=== PATIENT | male | born 1995 | race Caucasian/White ===

== ENCOUNTER 2021-11-05 13:29 | Emergency (ER) | payer BC, SELFPAY ==
[2021-11-05 13:34] VITALS: BP 119/70; PULSE 87; RESP 14; TEMP 36.8; O2SAT 97
--- NOTE | 2021-11-05 13:45 | DI.RAD_ITS ---
Exam(s) XR HAND LT COMPLETE EXAM: XR HAND LT COMPLETE CLINICAL HISTORY: trauma, pain TECHNIQUE: COMPARISON: No exams were available for comparison FINDINGS: Three views were obtained. There is no evidence of acute fracture or dislocation. IMPRESSION: RADIATION DOSE DELIVERED: Total DLP
--- NOTE | 2021-11-05 13:56 | PDOC.ERCMPRO ---
- If Service Date Differs Date of service: 11/05/21 Time of Service: 13:56 Care Management Progress Note YSBIRT Screen: negative. Pt reports no substance use or mental health symptoms. Pt notes infrequent cannabis use but does not endorse any symptoms of dependence.
--- NOTE | 2021-11-05 13:57 | W.ED.GENAD ---
Discharge Plan Disposition Patient Disposition: HOME Condition: Stable Discharge Details Clinical Impression: Hand injury Primary Care Provider: Unknown,Unknown ED Provider: Chrissie Adams Home Meds and New Rx's Prescriptions: No Action No Known Home Meds Discharge Instructions Instructions: Hand Sprain (ED) Additional Instructions: Please return immediately to the emergency department if you develop any new or worsening symptoms, if your condition does not improve as expected, or if you become otherwise concerned. It is extremely important that you call soon as possible to make an appointment to be seen in follow-up for this visit by your primary care doctor. Discharge Data Discharge Date/Time-TO BE ENTERED AT DEPARTURE: 11/05/21 14:38 Medical Decision Making Luke Acharya is a 26 y/o man without reported h/o of major medical problems presenting to the emergency department with hand pain. Pt reports that he works at [employer] and does a significnat amount of tumbling on mats. Pt reports that four days ago he was tumbling when he landed with his left hand half off of the mat, and had pain to the lateral aspect of his hand. Pt reports that pain has persisted. Pt reports that pain has not limited any of his activities, but he wanted to have the hand evaluated given duration of symptoms. He states that he had no other injuries when he injured his hand, did not hit his head, did not lose consciousness, no skin wound. Denies any other pain, numbness, weakness. Pt states that he feels otherwise well and in his usual state of health, denies fever, SOB, cough, vomiting, rash. On exam Pt is very well and non-toxic appearing. There is TTP of the lateral aspect of the 5th MC and of the lateral aspect of the 5th MCJ. FROM of all 5 digits. Fingers NVI. Concern for contusion vs fx. Exam/hx at this time is not c/w infectious pathology. Plan for xrays. Xrays negative. Plan for brace. I had a lengthy discussion with the Patient regarding return to emergency department precautions, home care, and importance of outpatient follow-up. Pt verbalized understanding of the plan and was amenable. All questions were answered. Medical Records Medical records reviewed: Yes I reviewed the patient's medical records. Imaging Data Radiologic Study: Attestation: I personally reviewed and interpreted this imaging study as follows: Radiologist's impression: EXAM:? XR HAND LT COMPLETE CLINICAL HISTORY:? trauma, pain TECHNIQUE:? COMPARISON:? No exams were available for comparison FINDINGS: Three views were obtained.? There is no evidence of acute fracture or dislocation. HPI General Mode of arrival: ambulatory. Date/Time Provider Initiated Documentation: 11/05/21 13:48. Limitations to Documentation: no limitations. Information obtained by: patient, RN notes reviewed and old records reviewed. HPI Narrative: Luke Acharya is a 26 y/o man without reported h/o of major medical problems presenting to the emergency department with hand pain. Pt reports that he works at [employer] and does a significnat amount of tumbling on mats. Pt reports that four days ago he was tumbling when he landed with his left hand half off of the mat, and had pain to the lateral aspect of his hand. Pt reports that pain has persisted. Pt reports that pain has not limited any of his activities, but he wanted to have the hand evaluated given duration of symptoms. He states that he had no other injuries when he injured his hand, did not hit his head, did not lose consciousness, no skin wound. Denies any other pain, numbness, weakness. Pt states that he feels otherwise well and in his usual state of health, denies fever, SOB, cough, vomiting, rash. Related Data Home Medications Medication Instructions Recorded Confirmed Unknown [No Known Home Meds] 11/05/21 11/05/21 Allergies Allergy/AdvReac Type Severity Reaction Status Date / Time No Known Allergies Allergy Unverified 11/05/21 13:36 General Stated Complaint: Orthopedic EWA: 4 PFSH All Active Problems (Updated 11/05/21 @ 14:30 by Chrissie Adams MD) Hand injury (Acute) Social History Smoking/Tobacco Use Status: Never Smoking risk assessment performed?: Yes Alcohol Intake: current Alcohol Intake frequency: holidays/special occasions only Drug use: Occasionally Substance use type: marijuana Do you feel safe at home: Yes Do you feel safe in your relationship?: Yes Exam Narrative Exam Narrative: Constitutional: well and [id number], pleasant, conversing normally HENT: head atraumatic/normocephalic/normal inspection, mucous membranes moist Eyes: conjunctiva normal, sclera normal, pupils 3mm b/l Neck: no stridor, normal ROM, trachea midline Resp: normal work of breathing, speaking in full sentences Cardio: normal rate, normal rhythm Skin: warm, dry, normal color, no rash Neuro: alert, not altered, grossly non-focal, normal tone Ext: no edema, left hand TTP over the lateral aspect of the 5th MC and of the lateral aspect of the 5th MCJ. FROM of all 5 digits, FDS and FDP of all digits intact. Sensation intact over left distal digits. Brisk cap refill all left digits. Left wrist with full painless ROM and no TTP. Psych: normal mood, normal affect, normal behavior Course Vital Signs Vital signs: Vital Signs Temperature 36.8 C 11/05/21 13:34 Pulse 87 11/05/21 13:34 Respiratory Rate 14 11/05/21 13:34 Blood Pressure 119/70 11/05/21 13:34 Pulse Oximetry 97 11/05/21 13:34 Temperature 36.8 C 11/05/21 13:34 Temperature Source Temporal Artery Scan 11/05/21 13:34 Pulse 87 11/05/21 13:34 Respiratory Rate 14 11/05/21 13:34 Respiratory Effort Non-Labored 11/05/21 13:37 Blood Pressure 119/70 11/05/21 13:34 Blood Pressure Position Sitting 11/05/21 13:34 Pulse Oximetry 97 11/05/21 13:34 Oxygen Delivery Method Room Air 11/05/21 13:34 Oxygen Flow Rate 0 11/05/21 13:34 Pain Level 2 11/05/21 13:34 PAWSS Have you Been Recently Intoxicated or Drunk Within the Last 30 days?: Yes Have you Ever Experienced Previous Episodes of Alcohol Withdrawal?: No Have you ever Experienced Withdrawal Seizures?: No Have you ever Experienced Delirium Tremens(DT)s?: No Have you ever undergone Alcohol Rehabilitation Treatment (i.e, inpt ot outpatient treatment programs)?: No Have you ever Experienced Blackouts?: No Have you ever Combined Alcohol with other Downers within the last 90 days?: No Have you ever Combined Alcohol with any other Substance of Abuse during the last 90 days?: No Positive Blood Alcohol level on Presentation? [PCS.BAL]: No Evidence of Increased Autonomic Activity (i.e. HR>120, tremor, sweating, agitation, nausea)?: No Result: 1
== END 2021-11-05 14:38 | disposition home or self-care (01) ==
PROVIDERS: Emergency Provider Student in an Organized Health Care Education/Training Program
DX: S69.82XA Other specified injuries of left wrist, hand and finger(s), initial encounter (principal); W18.39XA Other fall on same level, initial encounter
CPT/HCPCS: 99283; 73130